=== PATIENT | female | born 1955 | race Caucasian/White ===

== ENCOUNTER 2018-09-24 20:46 | Observation (INO) | payer OTHER ==
[2018-09-24] MEDS ORDERED: ONDANSETRON 4 MG/2 ML VIAL ONE (21:48)
[2018-09-24] MEDS ORDERED: NA CHLORIDE 0.9% 2,000 ML ONE (21:48)
[2018-09-24] MEDS ORDERED: FAMOTIDINE 20 MG/2 ML VIAL IV ONE (21:48)
[2018-09-24 21:54] LABS: Absolute Lymphocytes (CBC) 0.9 K/uL (0.7-4.9); Absolute Monocytes 0.5 K/uL (0.1-1.3); Absolute Neutrophil 7.6 K/uL (1.8-8.0); Basophils % 0.3 % (0-1.3); Eosinophils % 1.2 % (0-4.4); Lymphocytes % 10.1 % (15.3-44.8); MPV 9.2 fL (7.6-11.3); Monocytes % 5.4 % (3.3-12.3)
[2018-09-24 21:55] LABS: Protime INR 1.08
--- NOTE | 2018-09-24 22:07 | ER ---
Nurse's Notes [facility] Name: Annamarie Hodgson Age: 63 yrs Sex: Female : 1955 Arrival Date: 09/24/2018 Time: 20:48 Bed 4 Private MD: Diagnosis: Diarrhea, unspecified;Abdominal tenderness;Hypotension;Weakness;Pneumonia due to other specified bacteria Presentation: 09/24 20:58 Presenting complaint: Patient states: "I got up with what I thought was dumping aj1 syndrome and it hasn't stopped all day, its been happening every 15 minutes" Patient reports dizziness, feeling like she might pass out anytime that she stands. Reports abdominal cramping, appears pale. Transition of care: patient was not received from another setting of care. Onset of symptoms was September 24, 2018. Risk Assessment: Do you want to hurt yourself or someone else? Patient reports no desire to harm self or others. Initial Sepsis Screen: Does the patient meet any 2 criteria? Systolic BP < 90 mmHg. HR > 90 bpm. Does the patient have a suspected source of infection? Yes: Acute abdominal pain. Care prior to arrival: None. 20:58 Method Of Arrival: Ambulatory aj1 20:58 Acuity: SULEMAN 2 aj1 Historical: - Allergies: 09/25 00:58 Sulfa (Sulfonamide Antibiotics); lp1 - Home Meds: 09/24 21:00 None [Active]; aj1 - PMHx: 21:00 heart palpitations; aj1 - PSHx: 21:00 gastric sleeve; aj1 - Immunization history:: Flu vaccine is not up to date. - Social history:: Smoking status: Patient/guardian denies using tobacco. - Ebola Screening: : Patient denies travel to an Ebola-affected area in the 21 days before illness onset. - Family history:: not pertinent. Screenin:28 Abuse screen: Denies threats or abuse. Denies injuries from another. Nutritional lp1 screening: No deficits noted. Tuberculosis screening: No symptoms or risk factors identified. Fall Risk Total Brothers Fall Scale indicates High Risk Score (45 or more points). Fall prevention measures have been instituted. Side Rails Up X 2 Family Present and informed to notify staff if the need to leave the bedside As available patient and family educated on Fall Prevention Program and Strategies. Assessment: 21:28 General: Appears ill, Behavior is appropriate for age. Pain: Denies pain. Neuro: Level lp1 of Consciousness is awake, alert, obeys commands, Oriented to person, place, situation, Gait is steady, Pupils are PERRLA, Reports dizziness. Cardiovascular: Capillary refill < 3 seconds in bilateral fingers toes. Respiratory: Respiratory effort is even, unlabored, Breath sounds are clear bilaterally. GI: Abdomen is non-distended, Bowel sounds hyperactive in right upper quadrant, left upper quadrant, right lower quadrant and left lower quadrant Reports diarrhea. : No signs and/or symptoms were reported regarding the genitourinary system. EENT: No signs and/or symptoms were reported regarding the EENT system. Derm: Skin is intact, Skin is diaphoretic, Skin is pale. Musculoskeletal: Circulation, motion, and sensation intact. 22:07 Reassessment: Patient is alert, oriented x 3, equal unlabored respirations, skin lp1 warm/dry/pink. CT notified of patient completing oral contrast; Patient's color noted to be more pink Patient states feeling better. 23:00 Reassessment: Patient and/or family updated on plan of care and expected duration. Pain lp1 level reassessed. Patient resting, eyes closed, respirations unlabored. 23:50 Reassessment: Patient returned from CT at this time. lp1 09/25 01:00 Reassessment: Patient is alert, oriented x 3, equal unlabored respirations, skin lp1 warm/dry/pink. Patient denies pain at this time. Patient states feeling better. Patient states symptoms have improved. Vital Signs: 09/24 21:00 BP 87 / 69; Pulse 104; Resp 20; Temp 98.2; Pulse Ox 99% on R/A; aj1 21:15 BP 92 / 64; Pulse 80; Resp 22; Pulse Ox 93% on R/A; lp1 22:00 BP 105 / 63; Pulse 79; Resp 18; Pulse Ox 98% on R/A; lp1 22:45 BP 96 / 45; Pulse 66; Resp 18; Pulse Ox 98% on R/A; lp1 23:00 BP 106 / 76; Pulse 71; Resp 18; Pulse Ox 98% on R/A; lp1 23:15 BP 114 / 92; Pulse 66; Resp 16; Pulse Ox 99% on R/A; lp1 23:30 BP 118 / 70; Pulse 66; Resp 15; Pulse Ox 100% on R/A; lp1 09/25 00:30 BP 119 / 68; Pulse 69; Resp 15; Pulse Ox 98% on R/A; Pain 0/10; lp1 ED Course: 09/24 20:48 Patient arrived in ED. ag3 21:00 Triage completed. aj1 21:00 Arm band placed on Patient placed in an exam room. aj1 21:05 Seble Hernandez RN is Primary Nurse. lp1 21:15 Inserted saline lock: 18 gauge in left antecubital area, using aseptic technique. Blood lp1 collected. 21:16 Jeronimo Hadley MD is Attending Physician. felipe 21:28 Patient has correct armband on for positive identification. Placed in gown. Bed in low lp1 position. Call light in reach. Side rails up X2. case monitor on. Pulse ox on. NIBP on. 21:41 XRAY Chest (1 view) In Process Unspecified. EDMS 22:00 Inserted saline lock: 20 gauge in right antecubital area, using aseptic technique. oe Blood collected. 22:02 Maverick Marti MD is Hospitalizing Provider. felipe 22:07 Oral contrast reported to be complete. vm2 23:45 No provider procedures requiring assistance completed. Patient admitted, IV remains in lp1 place. 23:53 CT completed. Patient tolerated procedure well. Patient moved to CT via stretcher. Patient moved back from CT. Administered Medications: 21:45 Drug: Pepcid 20 mg Route: IVP; Site: left antecubital; lp1 22:30 Follow up: Response: No adverse reaction lp1 21:45 Drug: NS 0.9% 1000 ml Route: IV; Rate: 1 bolus; Site: left antecubital; lp1 22:30 Follow up: IV Status: Completed infusion; IV Intake: 1000ml lp1 22:30 Drug: NS 0.9% 1000 ml Route: IV; Rate: 1 bolus; Site: left antecubital; lp1 23:30 Follow up: IV Status: Completed infusion; IV Intake: 1000ml lp1 09/25 00:57 Drug: levofloxacin 500 mg Volume: 100 ml; Route: IVPB; Infused Over: 60 mins; Site: lp1 left antecubital; 01:06 Follow up: IV Status: Infusion continued upon admission lp1 00:59 Not Given (Patient Refused): Zofran 4 mg IVP once; over 2 minutes lp1 01:06 Drug: Flagyl 500 mg Volume: 100 ml; Route: IVPB; Rate: 200 ml/hr; Infused Over: 30 lp1 mins; Site: left antecubital; 01:06 Follow up: IV Status: Infusion continued upon admission lp1 Point of Care Testing: Blood Glucose: 09/24 21:20 Blood Glucose: 176 mg/dL; lp1 Ranges: Intake: 22:30 IV: 1000ml; Total: 1000ml. lp1 23:30 IV: 1000ml; Total: 2000ml. lp1 Outcome: 22:06 Decision to Hospitalize by Provider. felipe 23:46 Condition: stable lp1 23:46 Instructed on the need for admit. 09/25 01:10 Admitted to Med/surg accompanied by tech, via wheelchair, room 203, with chart, Report lp1 called to JIAN Melendez 01:23 Patient left the ED. lp1 Signatures: Dispatcher [employer] EDKenya Patten, RN RN aj1 Jeronimo Hadley MD MD cha Hagler, Ervin eh Pena, Laura, RN RN lp1 Casey Sawant Victoria 2 Effie Johnson3 Corrections: (The following items were deleted from the chart) 00:58 09/24 21:00 Allergies: Sulfazine; aj1 lp1
--- NOTE | 2018-09-24 22:07 | EDPHYS ---
Physician Documentation [facility] Name: Annamarie Hodgson Age: 63 yrs Sex: Female : 1955 Arrival Date: 09/24/2018 Time: 20:48 Bed 4 Private MD: ED Physician Jeronimo Hadley HPI: 09/24 21:27 This 63 yrs old Female presents to ER via Ambulatory with complaints of felipe Diarrhea. 21:27 The patient presents to the emergency department with nausea, diarrhea, abdominal pain, felipe of the right upper quadrant, left upper quadrant, right lower quadrant and left lower quadrant. Onset: The symptoms/episode began/occurred 1 day(s) ago. Possible causes: unknown. The symptoms are aggravated by nothing. The symptoms are alleviated by nothing. Associated signs and symptoms: Pertinent positives: abdominal pain, diarrhea, nausea. The patient has not experienced similar symptoms in the past. Historical: - Allergies: 09/25 00:58 Sulfa (Sulfonamide Antibiotics); lp1 - Home Meds: 09/24 21:00 None [Active]; aj1 - PMHx: 21:00 heart palpitations; aj1 - PSHx: 21:00 gastric sleeve; aj1 - Immunization history:: Flu vaccine is not up to date. - Social history:: Smoking status: Patient/guardian denies using tobacco. - Ebola Screening: : Patient denies travel to an Ebola-affected area in the 21 days before illness onset. - Family history:: not pertinent. ROS: 21:27 Constitutional: Negative for fever, chills, and weight loss, Eyes: Negative for injury, felipe pain, redness, and discharge, ENT: Negative for injury, pain, and discharge, Neck: Negative for injury, pain, and swelling, Cardiovascular: Negative for chest pain, palpitations, and edema, Respiratory: Negative for shortness of breath, cough, wheezing, and pleuritic chest pain, Back: Negative for injury and pain, : Negative for injury, bleeding, discharge, and swelling, MS/Extremity: Negative for injury and deformity, Skin: Negative for injury, rash, and discoloration, Psych: Negative for depression, anxiety, suicide ideation, homicidal ideation, and hallucinations, Allergy/Immunology: Negative for hives, rash, and allergies, Endocrine: Negative for neck swelling, polydipsia, polyuria, polyphagia, and marked weight changes, Hematologic/Lymphatic: Negative for swollen nodes, abnormal bleeding, and unusual bruising. 21:27 Abdomen/GI: Positive for abdominal pain, nausea, diarrhea. Exam: 21:27 Constitutional: This is a well developed, well nourished patient who is awake, alert, felipe and in no acute distress. Head/Face: Normocephalic, atraumatic. Eyes: Pupils equal round and reactive to light, extra-ocular motions intact. Lids and lashes normal. Conjunctiva and sclera are non-icteric and not injected. Cornea within normal limits. Periorbital areas with no swelling, redness, or edema. ENT: Nares patent. No nasal discharge, no septal abnormalities noted. Tympanic membranes are normal and external auditory canals are clear. Oropharynx with no redness, swelling, or masses, exudates, or evidence of obstruction, uvula midline. Mucous membranes moist. Neck: Trachea midline, no thyromegaly or masses palpated, and no cervical lymphadenopathy. Supple, full range of motion without nuchal rigidity, or vertebral point tenderness. No Meningismus. Chest/axilla: Normal chest wall appearance and motion. Nontender with no deformity. No lesions are appreciated. Cardiovascular: Regular rate and rhythm with a normal S1 and S2. No gallops, murmurs, or rubs. Normal PMI, no JVD. No pulse deficits. Respiratory: Lungs have equal breath sounds bilaterally, clear to auscultation and percussion. No rales, rhonchi or wheezes noted. No increased work of breathing, no retractions or nasal flaring. Back: No spinal tenderness. No costovertebral tenderness. Full range of motion. Female : Normal external genitalia. MS/ Extremity: Pulses equal, no cyanosis. Neurovascular intact. Full, normal range of motion. Neuro: Awake and alert, GCS 15, oriented to person, place, time, and situation. Cranial nerves II-XII grossly intact. Motor strength 5/5 in all extremities. Sensory grossly intact. Cerebellar exam normal. Normal gait. Psych: Awake, alert, with orientation to person, place and time. Behavior, mood, and affect are within normal limits. 21:27 Abdomen/GI: Inspection: abdomen appears normal, Bowel sounds: normal, Palpation: mild abdominal tenderness, in all quadrants, Liver: no appreciated palpable abnormalities, Hernia: not appreciated. Vital Signs: 21:00 BP 87 / 69; Pulse 104; Resp 20; Temp 98.2; Pulse Ox 99% on R/A; aj1 21:15 BP 92 / 64; Pulse 80; Resp 22; Pulse Ox 93% on R/A; lp1 22:00 BP 105 / 63; Pulse 79; Resp 18; Pulse Ox 98% on R/A; lp1 22:45 BP 96 / 45; Pulse 66; Resp 18; Pulse Ox 98% on R/A; lp1 23:00 BP 106 / 76; Pulse 71; Resp 18; Pulse Ox 98% on R/A; lp1 23:15 BP 114 / 92; Pulse 66; Resp 16; Pulse Ox 99% on R/A; lp1 23:30 BP 118 / 70; Pulse 66; Resp 15; Pulse Ox 100% on R/A; lp1 09/25 00:30 BP 119 / 68; Pulse 69; Resp 15; Pulse Ox 98% on R/A; Pain 0/10; lp1 MDM: 09/24 21:16 Patient medically screened. [facility] 21:29 Data reviewed: vital signs, nurses notes, lab test result(s), EKG, radiologic studies, [facility] CT scan, plain films. 09/24 21:26 Order name: Basic Metabolic Panel; Complete Time: 22:13 [facility] 09/24 21:26 Order name: CBC with Diff; Complete Time: 22:00 [facility] 09/24 21:26 Order name: LFT's; Complete Time: 22:13 [facility] 09/24 21:26 Order name: Magnesium; Complete Time: 22:13 [facility] 09/24 21:26 Order name: NT PRO-BNP; Complete Time: 22:13 [facility] 09/24 21:26 Order name: PT-INR; Complete Time: 22:00 [facility] 09/24 21:26 Order name: Troponin (emerg Dept Use Only); Complete Time: 22:13 [facility] 09/24 21:26 Order name: Lipase; Complete Time: 22:13 [facility] 09/24 21:26 Order name: Blood Culture Adult (2) [facility] 09/24 21:26 Order name: Stool Culture [facility] 09/24 21:26 Order name: Fecal Leukocyte Stain [facility] 09/24 21:26 Order name: CDIFF [facility] 09/24 21:26 Order name: Lactate; Complete Time: 23:04 [facility] 09/24 21:26 Order name: Procalcitonin; Complete Time: 23:04 [facility] 09/24 21:26 Order name: XRAY Chest (1 view) [facility] 09/24 21:26 Order name: EKG; Complete Time: 21:28 [facility] 09/24 21:26 Order name: CT Abd/Pelvis - W/Contrast [facility] 09/24 21:26 Order name: Type And Screen [facility] 09/24 23:19 Order name: CONS Pharmacy Consult [facility] 09/24 23:19 Order name: NPO [facility] 09/24 23:19 Order name: CBC with Automated Diff [facility] 09/24 23:19 Order name: CBC with Automated Diff [facility] 09/24 23:19 Order name: Comprehensive Metabolic Panel [facility] 09/24 23:19 Order name: Comprehensive Metabolic Panel [facility] 09/24 21:26 Order name: Cardiac monitoring; Complete Time: 21:31 [facility] 09/24 21:26 Order name: EKG - Nurse/Tech; Complete Time: 21:31 [facility] 09/24 21:26 Order name: IV Saline Lock; Complete Time: 21:31 [facility] 09/24 21:26 Order name: Labs collected and sent; Complete Time: 21:52 [facility] 09/24 21:26 Order name: O2 Per Protocol; Complete Time: 21:31 [facility] 09/24 21:26 Order name: O2 Sat Monitoring; Complete Time: 21:31 [facility] Administered Medications: 21:45 Drug: Pepcid 20 mg Route: IVP; Site: left antecubital; lp1 22:30 Follow up: Response: No adverse reaction 1 21:45 Drug: NS 0.9% 1000 ml Route: IV; Rate: 1 bolus; Site: left antecubital; lp1 22:30 Follow up: IV Status: Completed infusion; IV Intake: 1000ml lp1 22:30 Drug: NS 0.9% 1000 ml Route: IV; Rate: 1 bolus; Site: left antecubital; lp1 23:30 Follow up: IV Status: Completed infusion; IV Intake: 1000ml [facility] 09/25 00:57 Drug: levofloxacin 500 mg Volume: 100 ml; Route: IVPB; Infused Over: 60 mins; Site: lp1 left antecubital; 01:06 Follow up: IV Status: Infusion continued upon admission lp1 00:59 Not Given (Patient Refused): Zofran 4 mg IVP once; over 2 minutes lp1 01:06 Drug: Flagyl 500 mg Volume: 100 ml; Route: IVPB; Rate: 200 ml/hr; Infused Over: 30 lp1 mins; Site: left antecubital; 01:06 Follow up: IV Status: Infusion continued upon admission lp1 Point of Care Testing: Blood Glucose: 09/24 21:20 Blood Glucose: 176 mg/dL; lp1 Ranges: Critical Glucose Levels:Adult <50 mg/dl or >400 mg/dl <40 mg/dl or >180 mg/dl Disposition: 09/24/18 22:06 Hospitalization ordered by Maverick Marti for Inpatient Admission. Preliminary diagnosis are Diarrhea, unspecified, Abdominal tenderness, Hypotension, Weakness, Pneumonia due to other specified bacteria. - Bed requested for Telemetry/MedSurg (Inpatient). - Status is Inpatient Admission. lp1 - Condition is Fair. - Problem is new. - Symptoms have improved. UTI on Admission? No Signatures: Dispatcher [employer] EDKenya Patten RN RN 1 Jeronimo Hadley MD MD cha Pena, Laura, RN RN 1 Haylee Grajeda RN RN cg Corrections: (The following items were deleted from the chart) 23:32 22:06 Hospitalization Ordered by Maverick Marti MD for Inpatient Admission. Preliminary cg diagnosis is Diarrhea, unspecified; Abdominal tenderness; Hypotension; Weakness. Bed requested for Telemetry/MedSurg (Inpatient). Status is Inpatient Admission. Condition is Fair. Problem is new. Symptoms have improved. UTI on Admission? No. felipe 09/25 00:24 09/24 23:32 09/24/2018 22:06 Hospitalization Ordered by Maverick Marti MD for Inpatient [facility] Admission. Preliminary diagnosis is Diarrhea, unspecified; Abdominal tenderness; Hypotension; Weakness. Bed requested for Telemetry/MedSurg (Inpatient). Status is Inpatient Admission. Condition is Fair. Problem is new. Symptoms have improved. UTI on Admission? No. cg 09/25 00:58 09/24 21:00 Allergies: Sulfazine; aj1 lp1 09/25 01:23 00:24 09/24/2018 22:06 Hospitalization Ordered by Maverick Marti MD for Inpatient lp1 Admission. Preliminary diagnosis is Diarrhea, unspecified; Abdominal tenderness; Hypotension; Weakness; Pneumonia due to other specified bacteria. Bed requested for Telemetry/MedSurg (Inpatient). Status is Inpatient Admission. Condition is Fair. Problem is new. Symptoms have improved. UTI on Admission? No. felipe
[2018-09-24 22:08] LABS: ALT/SGPT 61 U/L (12-78); AST/SGOT 51 U/L (15-37); Albumin 4.1 g/dL (3.4-5.0); Alkaline Phosphatase 142 U/L (45-117); BUN Blood Urea Nitrogen 25 mg/dL (7-18); Bicarbonate 21 mmol/L (21-32); Bilirubin Direct 0.2 mg/dL (0-0.2); Bilirubin Total 0.6 mg/dL (0.2-1.0); Glucose Level 170 mg/dL (74-106); Lipase 544 U/L (73-393); NT PRO-BNP 98 pg/mL (<125); Potassium 3.5 mmol/L (3.5-5.1); Protein, Total 8.4 g/dL (6.4-8.2); Sodium Level 139 mmol/L (136-145); Troponin (Emerg Dept Use Only) < 0.02 ng/mL (0.0-0.045)
[2018-09-24] MEDS ORDERED: ACETAMINOPHEN 500 MG TAB PO PRN (23:16)
[2018-09-24] MEDS ORDERED: ONDANSETRON 4 MG/2 ML VIAL IV PRN (23:16)
[2018-09-24] MEDS ORDERED: MORPHINE 4 MG/ML SYR IV PRN (23:16)
[2018-09-24] MEDS ORDERED: FENTANYL CITR 100 MCG/2 ML IV PRN (23:19)
[2018-09-25] MEDS ORDERED: Levofloxacin500mg IV 500 MG/100 ML BAG IV ONE (01:00)
[2018-09-25] MEDS ORDERED: METRONIDAZOLE 500mg IVPB 500 MG/100 ML BAG IV ONE (01:00)
[2018-09-25] MEDS: METHYLPREDNISOLONE 125 MG INJ IV SCH ×2 (02:37→06:52)
[2018-09-25] MEDS: NA CHLORIDE 0.9% 1,000 ML IV SCH ×2 (02:37→12:44)
[2018-09-25 03:12] VITALS: BMI 28.8
[2018-09-25 03:53] LABS: Absolute Lymphocytes (CBC) 0.4 K/uL (0.7-4.9); Absolute Monocytes 0.4 K/uL (0.1-1.3); Absolute Neutrophil 4.6 K/uL (1.8-8.0); Basophils % 0.4 % (0-1.3); Eosinophils % 0.6 % (0-4.4); Hematocrit 37.2 % (36.0-45.0); Lymphocytes % 7.3 % (15.3-44.8); MPV 9.1 fL (7.6-11.3); Monocytes % 6.9 % (3.3-12.3); RBC Red Blood Cell Count 4.02 M/uL (3.86-4.86)
[2018-09-25 03:57] LABS: Urine Appearance CLEAR; Urine Bilirubin NEGATIVE (NEG); Urine Blood NEGATIVE (NEG); Urine Color YELLOW; Urine Glucose NEGATIVE (NEG); Urine Protein NEGATIVE (NEG); Urine Specific Gravity >=1.030 (1.005-1.030); Urine Urobilinogen 0.2 mg/dL (0.2-1.0); Urine pH 5.5 (5.0-7.0)
[2018-09-25 03:58] LABS: Urine Microscopic Reflex NO UMIC
[2018-09-25 05:09] LABS: Albumin 3.6 g/dL (3.4-5.0); Bilirubin Total 0.5 mg/dL (0.2-1.0); Potassium 3.6 mmol/L (3.5-5.1)
--- NOTE | 2018-09-25 07:01 | RAD REPORT ---
EXAM DESCRIPTION: RAD - Chest Single View - 09/24/2018 9:41 pm CLINICAL HISTORY: Cough, syncope, abdominal pain COMPARISON: April 2012 TECHNIQUE: AP portable chest image was obtained 2139 hours . FINDINGS: Lungs are clear. Heart and vasculature are normal. No measurable pleural effusion and no p neumothorax. No acute bony abnormality seen. No acute aortic findings suspected. IMPRESSION: No acute cardiopulmonary process. No suspicious interval change.
[2018-09-25] MEDS ORDERED: MULTIVITAMIN PO SCH (09:00)
[2018-09-25] MEDS ORDERED: [UNRECOGNIZED DRUG - OTHER] PO SCH (09:00)
[2018-09-25] MEDS ORDERED: FOLIC ACID PO SCH (09:00)
--- NOTE | 2018-09-25 09:49 | EKG ---
Test Date: 2018-09-24 Test Time: 21:13:34 Studio Receptionist: BALAJI MEASUREMENT RESULTS: Intervals: Rate: 70 CA: 144 QRSD: 100 QT: 412 QTc: 444 [place]: P: 26 CA: 144 QRS: 10 T: 241 INTERPRETIVE STATEMENTS: Normal sinus rhythm T wave abnormality, consider lateral ischemia Abnormal ECG Compared to ECG 04/22/2012 13:52:08 T-wave abnormality now present Possible ischemia now present ST (T wave) deviation no longer present Prolonged QT interval no longer present Electronically Signed On 09-25-18 08:34:34 [employer] by Dewayne Godinez
--- NOTE | 2018-09-25 09:59 | P.HP ---
Certification for Inpatient Patient admitted to: Observation With expected LOS: <2 Midnights Patient will require the following post-hospital care: None Practitioner: I am a practitioner with admitting privileges, knowledge of patient current condition, hospital course, and medical plan of care. Services: Services provided to patient in accordance with Admission requirements found in Title 42 Section 412.3 of the Code of Federal Regulations Patient History Date of Service: 09/25/18 Reason for admission: Abdominal pain /diarrhea History of Present Illness: Patient is a 63-year-old female came to the hospital with abdominal pain. Patient also had persistent diarrhea. Patient was having intractable diarrhea and came to the hospital for evaluation. She also had cramping abdominal pain. She was admitted to the hospital for evaluation. She was given IV hydration and pain control. Her diarrhea has improved. She has had no diarrhea for the last couple of hours. Hopefully will be able to discharge her in the morning as long as she is tolerating diet. Allergies Sulfa (Sulfonamide Antibiotics) Allergy (Verified 09/25/18 01:41) Itching, Lip swelling Home Medications: Iron,Carbonyl/FA/Multivit-Min [Opurity Multivitamin Tab Chew] 1 tab PO TID 09/25 - Past Medical/Surgical History Has patient received pneumonia vaccine in the past: Yes Diabetic: No Past Medical History: Reviewed- Non-Contributory -: Gastric Sleeve -: Cholecystectomy -: Breast Augmentation -: Lap Band -: Hysterectomy - Family History Mother Family History: Reviewed- Non-Contributory - Social History Smoking Status: Never smoker Alcohol use: Yes CD- Drugs: No Caffeine use: Yes Place of Residence: Home Review of Systems 10-point ROS is otherwise unremarkable Physical Examination - Vital Signs Temperature: 97.6 F Blood Pressure: 104/56 Pulse: 57 Respirations: 20 Pulse Ox (%): 97 - Physical Exam General: Alert, In no apparent distress, Oriented x3 HEENT: Atraumatic, PERRLA, Mucous membr. moist/pink, EOMI, Sclerae nonicteric Neck: Supple, 2+ carotid pulse no bruit, No LAD, Without JVD or thyroid abnormality Respiratory: Clear to auscultation bilaterally, Normal air movement Cardiovascular: Regular rate/rhythm, Normal S1 S2, No murmurs Gastrointestinal: Normal bowel sounds, Soft and benign, Non-distended, No tenderness Musculoskeletal: No clubbing, No swelling, No erythema, No tenderness Integumentary: No rashes Neurological: Normal gait, Normal speech, Normal strength at 5/5 x4 extr, Normal tone, Sensation intact, Cranial nerves 3-12 intact, Normal affect Lymphatics: No axilla or inguinal lymphadenopathy - Studies Laboratory Data (last 24 hrs) 09/24/18 21:15: PT 12.7 H, INR 1.08 09/24/18 21:15: WBC 9.2, Hgb 14.2, Hct 43.0, Plt Count 295 09/24/18 21:15: Sodium 139, Potassium 3.5, BUN 25 H, Creatinine 1.04, Glucose 170 H, Magnesium 2.0, Total Bilirubin 0.6, AST 51 H, ALT 61, Alkaline Phosphatase 142 H, Lipase 544 H Assessment & Plan - Problems (Diagnosis) (1) Viral gastroenteritis Current Visit: Yes Status: Acute - Plan Plan: 1. IV fluids and IV antibiotics 2. Stool studies 3. Nephrology consultation 4. Pain control 5. Outpatient colonoscopy & Stool stuies 6. Repeat abdominal film if pain worsens 7. GI and DVT prophylaxis Discharge Plan: Home Plan to discharge in: 24 Hours - Advance Directives Does patient have a Living Will: No Does patient have a Durable POA for Healthcare: No - Code Status/Comfort Care Code Status Assessed: No Code Status: Full Code Comfort Measures: Dying Care Critical Care: No Time Spent Managing PTS Care (In Minutes): 50
[2018-09-25 11:14] VITALS: O2SAT 97
--- NOTE | 2018-09-25 13:13 | RAD REPORT ---
EXAM DESCRIPTION: CT - Abdomen Pelvis W Contrast - 09/25/2018 4:39 am CLINICAL HISTORY: The patient is 63 years old and is Female; ABD PAIN COMPARISON: No relevant prior studies available. TECHNIQUE: Axial computed tomography images of the abdomen and pelvis with intravenous contrast. Sagittal and co ronaldo reformatted images were created and reviewed. This CT exam was performed using one or more of t he following dose reduction techniques: Automated exposure control, adjustment of the mA and/or kV ac cording to patient size, and/or use of iterative reconstruction technique. FINDINGS: Lung bases: Unremarkable. No mass. No consolidation. ABDOMEN: Liver: Unremarkable. No mass. Gallbladder and bile ducts: Surgical clips are present in the right upper quadrant, consistenet with previous cholecystectomy. Pancreas: No ductal dilation. No mass. Spleen:Unremarkable. Adrenals: Unremarkable. No mass. Kidneys and ureters: Unremarkable. No solid mass. No hydronephrosis. Stomach and bowel: Postsurgical changes stomach is noted. The proximal small bowel is decompressed. T he remainder of the small bowel is normal in caliber. Contrast is noted within the mid to distal smal l bowel. Contrast is present within the proximal colon. Liquid stool is noted throughout the left col on to level of the rectum. A few scattered colonic diverticula are noted without surrounding inflamma tion. PELVIS: Appendix: No findings to suggest acute appendicitis. Bladder: Unremarkable. No mass. Reproductive: The patient is status port hysterectomy. ABDOMEN and PELVIS: Intraperitoneal space: No free air. No significant fluid collection. Bones/joints: Minimal degenerative changes of the spine are present. Soft tissues: Bilateral breast implants are partially visualized. Vasculature: Unremarkable. No enlarged lymph nodes Lymph nodes: Unremarkable. No enlarged lymph nodes. IMPRESSION: Nonspecific appearance of the colon, specifically the left colon demonstrating liquid st ool. Findings may be secondary to a mild colitis. Electronically signed by Yina Banks MD 09/25/2018 12:06 AM GUEST RELATIONS EXECUTIVE Due to temporary technical issues with the PACS/Fluency reporting system, reports are being signed by the in house radiologist as a courtesy to ensure prompt reporting. The interpreting radiologist is f ully responsible for the content of the report.
[2018-09-25 15:02] VITALS: BP 117/69; TEMP 97.8
== END 2018-09-25 15:19 | disposition home or self-care (01) ==
LOC: ER 20:46 → ERHOLD 23:16 → INTOOBSV 23:16 → 2ND 09-25 01:05
PROVIDERS: ADMIT Hospitalist; ATTEND Hospitalist
DX: A08.4 Viral intestinal infection, unspecified (principal); Z98.84 Bariatric surgery status; Z88.2 Allergy status to sulfonamides
CPT/HCPCS: 36415; 71045; 74177; 80048; 80053; 80076; 81003; 82962; 83605; 83690; 83735; 83880; 84145; 84484; 85025; 85610; 86850; 86900; 86901; 87040; 87045; 87046; 87493; 89055; 93005; 96361; 96374; 96375; 99285; G0378; J2405; J2930; J7030; Q9967

== ENCOUNTER 2025-06-09 12:21 | Emergency (ER) | payer OTHER ==
[2025-06-09] MEDS ORDERED: DIPHENHYDRAMINE 25 MG TAB/CAP ONE (13:12)
[2025-06-09] MEDS ORDERED: FAMOTIDINE 20 MG TAB ONE (13:12)
--- NOTE | 2025-06-09 13:30 | EDPHYS ---
Physician Documentation [facility] Name: Annamarie Hodgson Age: 69 yrs Sex: Female : 1955 Arrival Date: 06/09/2025 Time: 12:21 Bed 11 Private MD: ED Physician Juma Maldonado HPI: 06/09 17:07 This 69 yrs old Female presents to ER via Ambulatory with complaints of dr5 Allergic Reaction - to meds. 17:07 Onset: The symptoms/episode began/occurred acutely. Patient is a 69-year-old female dr5 with hx of DM coming in with itching all over her body after taking clindamycin, doxycycline. Patient reports she was at her mouth might be tingly but since has resolved. Patient has not taken medication prior to arrival. Patient is taking antibiotics for cellulitis of left breast.. Historical: - Allergies: 12:53 Sulfa (Sulfonamide Antibiotics); ph 12:53 Cipro; ph 12:53 shrimp; ph - Immunization history:: Adult Immunizations unknown. - Infectious Disease History:: Denies. - Social history:: Smoking status: Patient denies any tobacco usage or history of. ROS: 17:07 Constitutional: as per hpi dr5 Exam: 17:07 Constitutional: This is a well developed, well nourished patient who is awake, alert, dr5 and in no acute distress. Head/Face: Normocephalic, atraumatic. Eyes: Pupils equal round and reactive to light, extra-ocular motions intact. Lids and lashes normal. Conjunctiva and sclera are non-icteric and not injected. Cornea within normal limits. Periorbital areas with no swelling, redness, or edema. ENT: Nares patent. No nasal discharge, no septal abnormalities noted. Tympanic membranes are normal and external auditory canals are clear. Oropharynx with no redness, swelling, or masses, exudates, or evidence of obstruction, uvula midline. Mucous membranes moist. Neck: Trachea midline, no thyromegaly or masses palpated, and no cervical lymphadenopathy. Supple, full range of motion without nuchal rigidity, or vertebral point tenderness. No Meningismus. Chest/axilla: Normal chest wall appearance and motion. Nontender with no deformity. No lesions are appreciated. Cardiovascular: Regular rate and rhythm with a normal S1 and S2. Normal PMI, no JVD. No pulse deficits. Respiratory: Lungs have equal breath sounds bilaterally, clear to auscultation. No rales, rhonchi or wheezes noted. No increased work of breathing, no retractions or nasal flaring. Abdomen/GI: Soft, non-tender, non-distended Back: No spinal tenderness. No costovertebral tenderness. Full range of motion. Skin: Warm, dry with normal turgor. Normal color with no rashes, no lesions, and no evidence of cellulitis. MS/ Extremity: Pulses equal, no cyanosis. Neurovascular intact. Full, normal range of motion. Neuro: Awake and alert, GCS 15, oriented to person, place, time, and situation. Cranial nerves II-XII grossly intact. Motor strength 5/5 in all extremities. Sensory grossly intact. Cerebellar exam normal. Normal gait. Psych: Awake, alert, with orientation to person, place and time. Behavior, mood, and affect are within normal limits. Vital Signs: 12:50 BP 139 / 55; Pulse 80; Resp 18; Temp 97.9; Pulse Ox 100% on R/A; ph MDM: 12:30 Medical Screening Exam initiated dr5 17:07 Differential diagnosis: anaphylaxis, urticaria, Cellulitis. Data reviewed: vital signs, dr5 nurses notes. Consideration of Admission/Observation Escalation of care including admission/observation considered. Escalation considered patient found to have airway compromise. I considered the following discharge prescriptions or medication management in the emergency department I discussed and recommended Over The Counter medications, Medications were administered in the Emergency Department. See MAR. Care significantly affected by the following chronic conditions: Diabetes. Care significantly affected by the following Social Determinants of Health: Poor access to healthcare and/or lack of insurance, Poor access to transportation, Problems related to employment. Counseling: I had a detailed discussion with the patient and/or guardian regarding the historical points, exam findings, and any diagnostic results supporting the discharge/admit diagnosis, the presence of at least one elevated blood pressure reading (>120/80) during this emergency department visit, the need for outpatient follow up, for definitive care, a family practitioner, to return to the emergency department if symptoms worsen or persist or if there are any questions or concerns that arise at home. Medication response: Dexamethasone, Benadryl, Pepcid. Response to treatment: the patient's symptoms have resolved after treatment, the patient is now symptom free. Special discussion: I discussed with the patient/guardian in detail that at this point there is no indication for admission to the hospital. It is understood, however, that if the symptoms persist or worsen the patient needs to return immediately for re-evaluation. Based on the history and exam findings, there is no indication for further emergent testing or inpatient evaluation. I discussed with the patient/guardian the need to see the primary care provider for further evaluation of the symptoms. ED course: Patient did not have hives or any skin abnormality. Not likely that reaction was from antibiotics. Will have patient continue taking antibiotics for her left breast cellulitis. All question answered. Recommended Benadryl at home. Strict ER precautions given.. Administered Medications: 13:00 Drug: Dexamethasone IM 10 mg IM once Route: IM; Site: left deltoid; cc6 13:41 Follow up: Response: No adverse reaction cc6 13:00 Drug: diphenhydrAMINE PO 25 mg PO once Route: PO; cc6 13:41 Follow up: Response: No adverse reaction cc6 13:00 Drug: Famotidine PO 10 mg PO once Route: PO; cc6 13:41 Follow up: Response: No adverse reaction cc6 Disposition: 18:14 I was immediately available on-site in the Emergency Department for consultation in the ms3 care of the patient. Disposition Summary: 06/09/25 13:29 Discharge Ordered Notes: Location: Home dr5 Condition: Stable dr5 Diagnosis - Allergic urticaria dr5 Followup: dr5 - With: Emergency Department - When: As needed - Reason: Worsening of condition Followup: dr5 - With: Private Physician - When: 1 - 2 days - Reason: Recheck today's complaints, Continuance of care, Re-evaluation by your physician Discharge Instructions: - Discharge Summary Sheet dr5 - Allergies, Adult dr5 Forms: - Medication Reconciliation Form dr5 - Patient Portal Instructions dr5 - Leadership Thank You Letter dr5 Signatures: Blanca Shetty RN RN Juma Borrego DO DO ms3 Chelsea Rizzo RN RN cc6 Delbert Green, DANUTA-C SENIOR PATROL AGENT-Cdr5
--- NOTE | 2025-06-09 13:30 | ER ---
Nurse's Notes [facility] Name: Annamarie Hodgson Age: 69 yrs Sex: Female : 1955 Arrival Date: 06/09/2025 Time: 12:21 Bed 11 Private MD: Diagnosis: Allergic urticaria Presentation: 06/09 12:50 Chief complaint: Patient states: Started taking clindamycin and doxycycline for L ph breast cellulitis, c/o itching to head and face, also says her mouth feels weird. Coronavirus screen: At this time, the client does not indicate any symptoms associated with coronavirus-19. Ebola Screen: No symptoms or risks identified at this time. Onset: The symptoms/episode began/occurred this morning. Anaphylaxis evaluation, no signs or symptoms of anaphylaxis were noted. Initial Sepsis Screen: Does the patient meet any 2 criteria? No. Patient's initial sepsis screen is negative. Does the patient have a suspected source of infection? No. Patient's initial sepsis screen is negative. Risk Assessment: Do you want to hurt yourself or someone else? Patient reports no desire to harm self or others. Onset of symptoms was June 09, 2025. 12:50 Method Of Arrival: Ambulatory ph 12:50 Acuity: SULEMAN 4 ph Historical: - Allergies: 12:53 Sulfa (Sulfonamide Antibiotics); ph 12:53 Cipro; ph 12:53 shrimp; ph - Immunization history:: Adult Immunizations unknown. - Infectious Disease History:: Denies. - Social history:: Smoking status: Patient denies any tobacco usage or history of. Screenin:40 [facility] ED Fall Risk Assessment (Adult) History of falling in the last 3 months, cc6 including since admission No falls in past 3 months (0 pts) Confusion or Disorientation No (0 pts) Intoxicated or Sedated No (0 pts) Impaired Gait No (0 pts) Mobility Assist Device Used No (0 pt) Altered Elimination No (0 pt) Score/Fall Risk Level 0 - 2 = Low Risk Oriented to surroundings, Maintained a safe environment, Hourly rounding (assess needs \T\ fall precautionary measures) done. Abuse screen: Denies threats or abuse. Denies injuries from another. Nutritional screening: No deficits noted. Tuberculosis screening: No symptoms or risk factors identified. Assessment: 12:40 General: Appears in no apparent distress. comfortable, Behavior is calm, cooperative, cc6 appropriate for age. Pain: Denies pain. Neuro: Level of Consciousness is awake, alert, obeys commands, Oriented to person, place, time, situation, Appropriate for age. Cardiovascular: Patient's skin is warm and dry. Respiratory: Airway is patent Respiratory effort is even, unlabored, Respiratory pattern is regular, symmetrical. GI: No signs and/or symptoms were reported involving the gastrointestinal system. : No signs and/or symptoms were reported regarding the genitourinary system. EENT: No signs and/or symptoms were reported regarding the EENT system. Derm: No signs and/or symptoms reported regarding the dermatologic system. Musculoskeletal: No signs and/or symptoms reported regarding the musculoskeletal system. Vital Signs: 12:50 BP 139 / 55; Pulse 80; Resp 18; Temp 97.9; Pulse Ox 100% on R/A; ph ED Course: 12:24 Patient arrived in ED. al6 12:29 Delbert Green FNP-C is PHCP. dr5 12:29 Juma Maldonado DO is Attending Physician. dr5 12:40 Bed in low position. Call light in reach. Side rails up X 1. Provided Education on: use cc6 of call light. 12:53 Triage completed. ph 12:53 Arm band placed on Patient placed in an exam room. ph 12:57 Chelsea Rizzo, RN is Primary Nurse. cc6 13:45 No provider procedures requiring assistance completed. Patient did not have IV access cc6 during this emergency room visit. Administered Medications: 13:00 Drug: Dexamethasone IM 10 mg IM once Route: IM; Site: left deltoid; cc6 13:41 Follow up: Response: No adverse reaction cc6 13:00 Drug: diphenhydrAMINE PO 25 mg PO once Route: PO; cc6 13:41 Follow up: Response: No adverse reaction cc6 13:00 Drug: Famotidine PO 10 mg PO once Route: PO; cc6 13:41 Follow up: Response: No adverse reaction cc6 Medication: 13:45 VIS not applicable for this client. cc6 Outcome: 13:29 Discharge ordered by . dr5 13:45 Discharged to home ambulatory, cc6 13:45 Condition: stable 13:45 Discharge instructions given to patient, Instructed on discharge instructions, follow up and referral plans. Demonstrated understanding of instructions, follow-up care, 13:49 Patient left the ED. cc6 Signatures: Blanca Shetty RN RN Chelsea Rizzo RN RN cc6 Delbert Green, DIRECTOR SELECTION AND ADMINISTRATION-C DIRECTOR SELECTION AND ADMINISTRATION-[facility] [place] [facility] [place] Carmel Amin
[2025-06-09 13:53] VITALS: BP 139/55; TEMP 97.9; O2SAT 100
== END 2025-06-09 13:49 | disposition home or self-care (01) ==
LOC: ER 12:21
DX: L50.0 Allergic urticaria (principal); Z88.1 Allergy status to other antibiotic agents; Z91.013 Allergy to seafood
CPT/HCPCS: 96372; 99284; J1100